=== PATIENT | male | born 1990 | race Caucasian/White ===

== ENCOUNTER → 2020-08-02 12:30 | Outpatient (BNVA) | payer SELFPAY | PROVIDERS: Visit Provider Internal Medicine ==

== ENCOUNTER 2022-01-05 21:34 | Emergency (ER) | payer OTHER, SELFPAY ==
--- NOTE | ~2022-01-05 | CT_ITS ---
CT head/brain wo con CLINICAL INFORMATION: Reason for Exam Left-sided headache COMPARISON: No prior CT scan available for comparison. TECHNIQUE: Department standard protocol. This CT examination was performed using dose optimization techniques as appropriate, variously including the following: *Automated exposure control *Adjustment of mA and/or kV according to patient size (this includes techniques or standardized protocols for targeted exams where dose is matched to indication/reason for exam; i.e. extremities or head) *Use of iterative reconstruction technique DLP: 742 mGy-cm FINDINGS: CEREBRAL HEMISPHERES: There is no evidence of intra-axial or extra-axial mass, hemorrhage or acute infarct. BRAIN PARENCHYMA: Normal peguero-white matter differentiation. SUBDURAL SPACE: No bleed. BASAL GANGLIA AND PINEAL GLAND: Unremarkable VENTRICLES: Symmetric and normal in size. CEREBELLUM AND BRAINSTEM: No space-occupying mass, hemorrhage or acute infarct. CEREBELLOPONTINE ANGLES: No lesion found. ORBITS: No intraorbital mass. VESSELS: Unremarkable SKULL BASE: Unremarkable INCLUDED SINUSES AT SKULL BASE: Minimal mucosal thickening of the floor of the right frontal air cell. SKULL AND SKIN: No fracture or bone lesion found. CT/CT head/brain wo con IMPRESSION: No CT evidence of intracranial space-occupying mass, bleed or infarct. Minimal mucosal thickening of the floor of the right frontal air cell.
[2022-01-05 21:37] VITALS: BP 159/104; PULSE 90; RESP 18; TEMP 36.6; O2SAT 99; BMI 26.4
[2022-01-05 21:43] VITALS: BP 153/89; PULSE 83; RESP 16; O2SAT 99
--- NOTE | 2022-01-05 21:50 | ED.NEUROSD ---
HPI - Neuro Symptoms/Deficit General Chief Complaint: Neuro Symptoms/Deficit Stated Complaint: blurriness, head pain Time Seen by Provider: 01/05/22 21:50 Related Data Allergies Allergy/AdvReac Type Severity Reaction Status Date / Time No Known Allergies Allergy Verified 01/05/22 21:36 Physical Exam Vital Signs: Vital Signs: Last Vital Signs Temp 97.9 F 01/05/22 21:37 Pulse 83 01/05/22 21:43 Resp 16 01/05/22 21:43 BP 153/89 H 01/05/22 21:43 Pulse Ox 99 01/05/22 21:43 BMI result Body Mass Index 26.4
--- NOTE | 2022-01-05 22:10 | ED.HA ---
HPI - Headache General Chief Complaint: Neuro Symptoms/Deficit Stated Complaint: blurriness, head pain Time Seen by Provider: 01/05/22 21:50 Source: patient Mode of arrival: ambulatory Limitations: no limitations History of Present Illness HPI Narrative: Patient no significant past medical history been having blurred vision for last 1 month off and on left eye according to him in just feel blurred no scotomas no loss of vision no eye pain also for last few days notice slight pain on the right back of the head at the bony part also for 1 hour noticed tingling in the left arm involving the whole hand no relation with head neck movement no motor weakness no neck pain Related Data Allergies Allergy/AdvReac Type Severity Reaction Status Date / Time No Known Allergies Allergy Verified 01/05/22 21:36 Review of Systems Review of Systems: Yes all other systems are reviewed and are negative [facility] Social History Social History Advance Directives: No Advance Directives Information Provided: Yes Physical Exam Vital Signs: Vital Signs: Last Vital Signs Temp 97.9 F 01/05/22 21:37 Pulse 83 01/05/22 21:43 Resp 16 01/05/22 21:43 BP 153/89 H 01/05/22 21:43 Pulse Ox 99 01/05/22 21:43 BMI result Body Mass Index 26.4 Appearance: Alert. Oriented X3. No acute distress. Eyes: PERRLA, visual acuity left 20/30 right 20/25 bilateral 20/25, fundus normal bilateral HEENT: Pharynx normal. Oral Mucosa moist slight tenderness right occipital area to touch Neck: Normal inspection. Neck supple. CVS: Normal heart rate and rhythm. Pulses normal. Respiratory: No respiratory distress. Equal air entry bilateral, no wheezing/rales/rhonchi Abdomen: Soft and nontender. Bowel sounds are present, no mass palpable, no CVA tenderness Skin: Skin warm and dry. Normal skin color. Normal skin turgor. Extremities: No lower extremity edema. No calf tenderness Neuro: Oriented X 3. No motor deficit. No sensory deficit.No cerebellar signs , cranial nerves II-XII intact Discharge Plan Discharge Clinical Impression: Headache Patient Disposition: Home, Self-Care Instructions: General Headache (ED) Additional Instructions: Etiology of a headache is not clear possible complex migraine Take Tylenol/Motrin for headaches Follow with PCP if any concerns Interventions: ED Discharge Assessment Last Done: 01/05/22 23:23 Discharge Date/Time: 01/05/22 23:23
== END 2022-01-05 23:23 | disposition home or self-care (01) ==
PROVIDERS: Emergency Provider Internal Medicine; PCP Internal Medicine
DX: R51.9 Headache, unspecified (principal)
CPT/HCPCS: 70450; 99283; 99284